=== PATIENT | male | born 1985 | race Caucasian/White ===

== ENCOUNTER 2020-06-03 04:05 | Inpatient (IN) ==
[2020-06-03 04:41] LABS: Basophils % 0.2 %; Eosinophils # 0.2 K/mcL (0.0-0.6); Eosinophils % 0.7 %; Hemoglobin 6.3 g/dL (12.9-16.9); Immature Granulocytes % 0.6 % (0-4); Lymphocytes % 21.1 %; Mean Corpuscular HGB Conc 31.5 g/dL (31.6-35.5); Mean Corpuscular Hemoglobin 25.6 pg (28.0-33.3); Mean Corpuscular Volume 81.3 fL (83.0-100.0); Monocytes # 0.9 K/mcL (0.0-1.3); Monocytes % 3.6 %; Neutrophils # 17.6 K/mcL (1.6-8.9); Platelet Count 444 K/mcL (140-400); Red Blood Count 2.46 M/mcL (4.19-5.50); Red Cell Distribution Width 18.1 % (11.5-14.5); Segmented Neutrophils % 73.8 %; White Blood Count 23.9 K/mcL (4.3-11.1)
[2020-06-03 04:44] LABS: Basophils # 0.1 K/mcL (0.0-0.2)
[2020-06-03 04:59] LABS: INR 1.3; Prothrombin Time 15.1 Seconds (9.4-12.1)
[2020-06-03 05:01] LABS: Alanine Aminotransferase 13 Units/L (7-52); Albumin 2.7 g/dL (3.5-5.7); Albumin/Globulin Ratio 0.6 (1.1-2.2); Alkaline Phosphatase 122 Units/L (34-104); Aspartate Amino Transferase 13 Units/L (13-39); BUN/Creatinine Ratio 21 (6-26); Bilirubin,Direct 0.2 mg/dL (0.0-0.2); Bilirubin,Indirect 0.3 mg/dL (0.0-1.0); Bilirubin,Total 0.5 mg/dL (0.3-1.0); Blood Urea Nitrogen 13 mg/dL (6-20); Calcium 8.3 mg/dL (8.6-10.3); Carbon Dioxide 22 mEq/L (23-29); Chloride 105 mEq/L (98-107); Globulin 4.2 g/dL (2.4-3.5); Glucose 110 mg/dL (70-105); Magnesium 1.9 mg/dL (1.6-2.6); Osmolality,Calculated 279 (280-300); Potassium 3.9 mEq/L (3.5-5.1); Sodium 134 mEq/L (136-145); Total Protein 6.9 g/dL (6.4-8.9); eGFR For African Americans > 60 (> 60); eGFR For Non-African Americans > 60 (> 60)
[2020-06-03 05:08] LABS: Hypochromasia Present (Not Present); Platelet Estimate Normal (Normal); Reactive Lymphocytes Present (Not Present)
[2020-06-03] MEDS ORDERED: Naloxone 0.4 MG/ML INJ IVP PRN (05:36)
[2020-06-03] MEDS ORDERED: Ondansetron 4 MG/2 ML VIAL IVP PRN (05:36)
[2020-06-03] MEDS ORDERED: hydrOXYzine pamoate 25 MG CAPSULE PO PRN (05:39)
[2020-06-03] MEDS ORDERED: 0.9 % Sodium Chloride 250 ML ONE ×2 (05:40→08:31)
[2020-06-03 06:05] LABS: Immature Reticulocyte % 26.5 % (11.0-38.0); Retculocyte # 0.09 M/mcL (0.05-0.10); Reticulocyte % 3.7 % (1.6-2.8)
[2020-06-03] MEDS ORDERED: Isovue-370 500 ML BOTTLE IVP ONE (06:07)
[2020-06-03 06:33] LABS: % Iron Saturation 6 % (20-55); Iron 16 mcg/dL (65-175); Transferrin 179 mg/dL (203-362)
[2020-06-03 06:41] LABS: Folate 8.3 ng/mL (3.0-16.0)
[2020-06-03 06:47] LABS: Ferritin 402 ng/mL (20-250)
[2020-06-03] MEDS ORDERED: Gabapentin 100 MG CAPSULE PO SCH (09:00)
[2020-06-03] MEDS ORDERED: QUEtiapine Fumarate 25 MG TABLET PO SCH (09:00)
[2020-06-03] MEDS ORDERED: Nicotine 21 MG PATCH.TD24 TD SCH (09:00)
[2020-06-03] MEDS ORDERED: 0.9 % Sodium Chloride 500 ML ONE (10:33)
[2020-06-03 10:35] VITALS: BP 101/62
[2020-06-03 11:28] LABS: Amphetamine Screen,Urine Negative ng/mL (Cutoff=1000); Barbiturate Screen,Urine Negative ng/mL (Cutoff=200); Benzodiazepines Screen,Urine Negative ng/mL (Cutoff=200); Cannabinoid Screen,Urine Negative ng/mL (Cutoff = 50); Cocaine Screen,Urine Negative ng/mL (Cutoff= 300); Opiate Screen,Urine Negative ng/mL (Cutoff=300); Phencyclidine Screen,Urine Negative ng/mL (Cutoff=25)
[2020-06-03] MEDS ORDERED: traZODone 50 MG TABLET PO SCH (21:00)
[2020-06-05 11:09] LABS: CK Total (Ck Isoenzymes) 8 U/L (20-200)
== END 2020-06-03 11:02 | disposition short-term general hospital (02) | DRG 663 ==
LOC: EMEROOARM 04:05 → 3BNU 04:05 → OBSVTOIN 06:17 → 3BNU 06:44
PROVIDERS: ADMIT Internal Medicine; ATTEND Internal Medicine